=== PATIENT | female | born 1950 ===

== ENCOUNTER 2019-09-28 05:00 | Day surgery (SDC) | payer OTHER | END 2019-09-28 09:15 | disposition home or self-care (01) | LOC: AMB-ENDOS 05:00 → ADM 13:15 → AMB-ENDOS 13:15 | DX: K62.89 Other specified diseases of anus and rectum (principal); K57.30 Diverticulosis of large intestine without perforation or abscess without bleeding; K64.1 Second degree hemorrhoids; Z12.11 Encounter for screening for malignant neoplasm of colon ==